=== PATIENT | male | born 1990 | race Caucasian/White ===

== ENCOUNTER 2020-08-04 05:49 | Emergency (ER) | payer MEDICAID ==
[~2020-08-04] VITALS: Ht 177.8 cm; Wt 79.5 kg
[~2020-08-04 05:49] MED LIST: HYDR-4353 PO
[2020-08-04 05:54] VITALS: BP 150/96
[2020-08-04] MEDS ORDERED: ketorolac trometh. 30mg/ml inj. IV ONE (06:05)
[2020-08-04] MEDS ORDERED: CLIN150C8 PO ×2 (06:28→06:56)
[2020-08-04] MEDS ORDERED: clindamycin 150mg capsule PO ONE (06:30)
== END 2020-08-04 06:58 | disposition home or self-care (01) ==
LOC: ER 05:49
DX: K04.7 Periapical abscess without sinus (principal); F17.200 Nicotine dependence, unspecified, uncomplicated; Z90.49 Acquired absence of other specified parts of digestive tract; Z79.899 Other long term (current) drug therapy
CPT/HCPCS: 96374; 99283; J1885

== ENCOUNTER 2022-03-09 15:57 | Emergency (ER) | payer MEDICAID ==
[~2022-03-09] VITALS: Ht 177.8 cm; Wt 77.3 kg
[~2022-03-09 15:57] MED LIST changes: +CLIN150C8 PO
[2022-03-09 16:00] VITALS: BP 143/73
[2022-03-09] MEDS ORDERED: oxyCODONE IR 5mg (immed. release) tablet PO ONE (18:40)
[2022-03-09] MEDS ORDERED: ondansetron 4mg rapidly disintigrating tab PO ONE (18:40)
[2022-03-09] MEDS ORDERED: TETanus/Pertussis (Acell)/Diphther VAC/PF (Tdap-Adult) 0.5ml syringe IMVAC ONE (18:45)
--- NOTE | 2022-03-09 19:02 | NUR ---
po meds x2 given im given
[2022-03-09 19:04] LABS: CLARITY,URINE CLEAR (Clear); COLOR,URINE YELLOW (Yellow); GLUCOSE, URINE NEGATIVE (Neg); KETONES,URINE NEGATIVE (Neg); LEUKOCYTE ESTERASE ,URINE NEGATIVE (Neg); NITRITES, URINE NEGATIVE (Neg); OCCULT BLOOD,URINE NEGATIVE (Neg); PROTEIN,URINE NEGATIVE (Neg); UROBILINOGEN,URINE 0.2 E.U/dL (0.2-1.0)
[2022-03-09 19:24] LABS: UA COLLECTION TYPE NON-SPECIFIED
[2022-03-09 19:24] LABS: BASOPHILS # (AUTO) 0.1 X10'3 (0-0.2); BASOPHILS % (AUTO) 0.8 % (0-1); EOSINOPHILS # (AUTO) 0.4 X10'3 (0-0.9); EOSINOPHILS % (AUTO) 3.7 % (0-6); HEMATOCRIT 39.3 % (42.0-52.0); HEMOGLOBIN 13.2 g/dl (14.0-17.9); LYMPHOCYTES % (AUTO) 20.9 % (21-51); MEAN CORPUSCULAR HEMOGLOBIN 28.3 PG (27.0-31.0); MEAN CORPUSCULAR HGB CONC 33.5 g/dL (33.0-36.5); MEAN CORPUSCULAR VOLUME 84.5 FL (78-98); MEAN PLATELET VOLUME 8.4 FL (7.4-10.4); MONOCYTES # (AUTO) 0.7 X10'3 (0-0.9); MONOCYTES % (AUTO) 7.4 % (2-12); NEUTROPHILS # (AUTO) 6.4 X10'3 (1.8-7.7); NEUTROPHILS % (AUTO) 67.2 % (42-75); PLATELET COUNT 307 X10'3 (140-440); RED BLOOD COUNT 4.65 X10'6 (4.70-6.10); RED CELL DISTRIBUTION WIDTH 13.3 % (11.5-14.5); WHITE BLOOD COUNT 9.6 X10'3 (4.5-11.0)
[2022-03-09 19:31] LABS: ALANINE AMINOTRANSFERASE 18 U/L (12-78); ALBUMIN 3.5 G/DL (3.4-5.0); ALKALINE PHOSPHATASE 91 IU/L (46-116); ANION GAP 7 (8-16); ASPARTATE AMINO TRANSFERASE 7 U/L (10-37); BILIRUBIN,TOTAL 0.2 MG/DL (0.1-1.0); BLOOD UREA NITROGEN 14 MG/DL (7-18); BUN/CREATININE RATIO 16.9 (5.4-32.0); C-REACTIVE PROTEIN 0.42 MG/DL (0.0-0.5); CALCIUM 8.6 MG/DL (8.5-10.1); CHLORIDE 104 MMOL/L (99-107); CREATININE 0.83 MG/DL (0.60-1.10); GLUCOSE 105 MG/DL (70-104); POTASSIUM 4.1 MMOL/L (3.5-5.1); SODIUM 141 MMOL/L (135-145); TOTAL CARBON DIOXIDE 30.5 MMOL/L (24-32); eGFR > 90 ML/MIN
[2022-03-09] MEDS ORDERED: DOXYCYCLINE 100MG CAPSULE PO STA (19:41)
[2022-03-09] MEDS ORDERED: CEPH500C81 PO (19:44)
[2022-03-09] MEDS ORDERED: DOXY100T67 PO (19:44)
[2022-03-09] MEDS ORDERED: cephalexin 500mg capsule PO ONE (19:45)
[2022-03-09] MEDS ORDERED: HYDROcodone/acetaminophen 5mg/325mg tablet PO ONE (20:00)
[2022-03-09] MEDS ORDERED: HYDR-3965 PO (20:02)
--- NOTE | 2022-03-09 20:02 | NUR ---
po med x2 given dressing applied to hip abcess
--- NOTE | 2022-03-09 20:08 | NUR ---
po med given
== END 2022-03-09 20:10 | disposition home or self-care (01) ==
LOC: ER 15:58
DX: L97.919 Non-pressure chronic ulcer of unspecified part of right lower leg with unspecified severity (principal); M54.2 Cervicalgia; L02.91 Cutaneous abscess, unspecified; F12.10 Cannabis abuse, uncomplicated; F15.10 Other stimulant abuse, uncomplicated; Z56.0 Unemployment, unspecified; Z90.49 Acquired absence of other specified parts of digestive tract; Z79.899 Other long term (current) drug therapy
CPT/HCPCS: 36415; 80053; 81003; 83605; 85025; 85651; 86140; 87040; 90471; 90715; 99284